=== PATIENT | male | born 1970 | race Caucasian/White ===

== ENCOUNTER → 2016-05-22 | Outpatient (CLI) | payer OTHER ==
[2016-05-22 12:36] LABS: Basophils % (A) 1 %; CH 32.4; CHCM 34.4; Eosinophils # (A) 0.2 k/uL (0-0.7); Eosinophils % (A) 2 %; HCT 50.6 % (39.0-53.0); Luc # (Auto) 0.14; Luc % (Auto) 2; Lymphocytes # (A) 1.9 k/uL (1.0-4.8); Lymphocytes % (A) 31 %; MCH 31.8 pg (25.0-35.0); MCHC 33.7 g/dL (31.0-37.0); MCV 94.5 fL (80.0-100.0); Mean Platelet Volume 6.6; Monocytes # (A) 0.4 k/uL (0-1.0); Monocytes % (A) 7 %; Neutrophils # (A) 3.6 k/uL (1.3-7.7); Neutrophils % (A) 57 %; RBC 5.36 m/uL (4.30-5.90); RDW 12.3 % (11.5-15.5); WBC 6.2 k/uL (3.8-10.6); WBC (Perox) 6.21
[2016-05-22 13:02] LABS: Potassium 4.6 mmol/L (3.5-5.1)
== END | disposition home or self-care (01) ==
LOC: LABWHC1 12:10
PROVIDERS: ATTEND Family Medicine
DX: A09 Infectious gastroenteritis and colitis, unspecified (principal)
CPT/HCPCS: 36415; 80051; 85025

== ENCOUNTER 2019-06-16 11:52 | Emergency (ER) | payer OTHER ==
[2019-06-16 12:01] VITALS: BP 129/82; PULSE 82; RESP 18; TEMP 97.9
--- NOTE | 2019-06-16 12:56 | XR ---
EXAMINATION TYPE: XR finger LT DATE OF EXAM: 06/16/2019 COMPARISON: NONE HISTORY: Pain TECHNIQUE: 2 views submitted FINDINGS: Displaced comminuted fracture tuft distal phalanx first digit IMPRESSION: Displaced comminuted fracture tuft distal phalanx first digit
--- NOTE | 2019-06-16 13:18 | ED ---
Upper Extremity HPI - General Chief Complaint: Extremity Injury, Upper Stated Complaint: Thumb injury Time Seen by Provider: 06/16/19 12:16 Source: patient, family Mode of arrival: ambulatory - History of Present Illness Initial Comments: Patient is a 48-year-old male presenting to emergency Department with a chief complaint of a left thumb injury. Patient states he hit his finger with a hammer. States the incident occurred yesterday. States there is small amounts of pain but he has noticed swelling. States his tetanus is up-to-date. Denies any numbness or tingling. Does report some some bruising in the region. Denies taking any medication to alleviate the symptoms. Not on blood thinners. - Related Data Home Medications Medication Instructions Recorded Confirmed HYDROcodone/APAP 7.5-325MG [Hiram 1 tab PO DIRECTED PRN 05/21/14 06/26/14 7.5-325] Previous Rx's Medication Instructions Recorded Hydrocodone/Acetaminophen [Hiram 1 each PO Q6H PRN #60 tab 06/26/14 10-325] Allergies Allergy/AdvReac Type Severity Reaction Status Date / Time No Known Allergies Allergy Verified 06/16/19 12:01 Review of Systems ROS Statement: Those systems with pertinent positive or pertinent negative responses have been documented in the HPI. ROS Other: All systems not noted in ROS Statement are negative. Past Medical History Past Medical History: No Reported History Additional Past Medical History / Comment(s): MVP History of Any Multi-Drug Resistant Organisms: None Reported Past Surgical History: Orthopedic Surgery Additional Past Surgical History / Comment(s): rt heel ,jaw, Past Anesthesia/Blood Transfusion Reactions: Postoperative Nausea & Vomiting (PONV) Past Psychological History: No Psychological Hx Reported Smoking Status: Never smoker Past Alcohol Use History: Occasional Past Drug Use History: None Reported General Exam Limitations: no limitations General appearance: alert, in no apparent distress Head exam: Present: atraumatic, normocephalic, normal inspection Eye exam: Present: normal appearance Pupils: Present: normal accommodation ENT exam: Present: normal exam Neck exam: Present: normal inspection, full ROM Respiratory exam: Present: normal lung sounds bilaterally Cardiovascular Exam: Present: regular rate, normal rhythm, normal heart sounds Extremities exam: Present: full ROM, tenderness, normal capillary refill. Absent: normal inspection (Left distal thumb trauma. No subinguinal hematoma. Mild bruising and tenderness in the region.) Back exam: Present: normal inspection, full ROM Neurological exam: Present: alert, oriented X3 Psychiatric exam: Present: normal affect, normal mood Skin exam: Present: warm, dry, intact, normal color Course Vital Signs 06/16/19 11:57 Temperature 97.9 F Pulse Rate 82 Respiratory 18 Rate Blood Pressure 129/82 O2 Sat by Pulse 99 Oximetry Procedures - Orthopedic Splinting/Casting Injury #1 Side: left Upper Extremity Injury Location: finger (Thumb) Upper Extremity Immobilizer: finger (other) Medical Decision Making - Medical Decision Making patient is a 48-year-old male presenting to emergency Department with a chief complaint of thumb injury. No numbness or tingling in the region. Tetanus up-to-date. Exam patient has slight swelling on the distal left thumb. Mild ecchymosis present in the region as well. No subinguinal hematoma. No loss of sensation. Neurovascularly intact. X-ray shows a comminuted tuft fracture of the distal left first digit. Finger splint applied. Patient to follow-up with orthopedics. Return parameters discussed. Advised to apply ice compress an alternate between Tylenol and Motrin for pain control. Case discussed with physician. Disposition Clinical Impression: Injury of left thumb, Closed fracture of tuft of distal phalanx of thumb Disposition: HOME SELF-CARE Condition: Stable Instructions (If sedation given, give patient instructions): Finger Fracture (ED) Additional Instructions: Follow with orthopedics. Return to emergency department if symptoms worsen. Alternate between Tylenol and Motrin for pain control. Apply ice compress to minimize symptoms. Is patient prescribed a controlled substance at d/c from ED?: No Referrals: Refugio Garcia MD [Primary Care Provider] - 1-2 days Carlos Barrera PAC [PHYSIC[facility] [employer] [facility]] - 1-2 days Time of Disposition: 13:18
== END 2019-06-16 13:26 | disposition home or self-care (01) ==
LOC: EC 11:52
DX: S62.522A Displaced fracture of distal phalanx of left thumb, initial encounter for closed fracture (principal); W22.8XXA Striking against or struck by other objects, initial encounter
CPT/HCPCS: 99283

== ENCOUNTER → 2020-11-28 | Outpatient (CLI) | payer BC ==
--- NOTE | 2020-11-28 15:48 | XR ---
Right foot HISTORY: Trauma and pain 2 views of the right foot, no comparisons There is some mild arthropathy change present with some joint space loss at the interphalangeal joint of the first digit, metatarsophalangeal joint. Bone mineralization is reduced. Postop change noted t o the calcaneus. Alignment is maintained. No acute fracture or dislocation. There is a small plantar calcaneal spur. IMPRESSION: Postop changes. Osteopenia. There is a plantar calcaneal spur, mild arthropathy noted at the first digit.
== END | disposition home or self-care (01) ==
LOC: RADXRMAIN 12:49
PROVIDERS: ATTEND Family Medicine
DX: S99.921A Unspecified injury of right foot, initial encounter (principal); M77.31 Calcaneal spur, right foot; M85.871 Other specified disorders of bone density and structure, right ankle and foot